=== PATIENT | male | born 1960 | race Caucasian/White ===

== ENCOUNTER 2017-01-01 10:52 | Day surgery (SDC) | payer OTHER ==
[~2017-01-01] VITALS: Ht 170.2 cm; Wt 78.2 kg
[~2017-01-01 10:52] MED LIST: ALLERCLEAR PO; CeFAZolin Inj 2 GM in IV Premix 1 EACH IV ONE
[2017-01-01] MEDS ORDERED: Dexamethasone 4 mg/mL Inj ONE (10:53)
[2017-01-01] MEDS ORDERED: Propofol 10,000 mCg/mL 20 mL Inj ONE (10:53)
[2017-01-01] MEDS ORDERED: Lidocaine PF 1% 30 mL Inj ONE (10:53)
[2017-01-01] MEDS: Lactated Ringer's 1,000 ML IV SCH ×2 (11:14→13:15)
[2017-01-01] MEDS ORDERED: PSEU30CA2 PO (11:18)
[2017-01-01 11:41] VITALS: BP 111/60; PULSE 83; RESP 16; O2SAT 97
[2017-01-01] MEDS ORDERED: CeFAZolin Inj 2 gm / 50mL D5W IV ONE (11:50)
--- NOTE | 2017-01-01 12:23 | PCM.HPANE ---
Patient Data Date of Service: January 01, 2017 Surgeon Admitting Provider: Attending Provider:Mandy Polanco DPM Primary Care Physician:Whitney Other Provider:Unruly Byrne Anesthesia Reason for Visit Right Foot Mortons Neuroma Ht/WT & BMI Height (Feet): 5 Height (Inches): 7 Weight (Kilograms): 78.2 Body Mass Index 27.00 Allergies Uncoded Allergies: NARCOTICS (Allergy, Unknown, SEVERE HYPOTENSION, 01/01/17) "PAINKILLERS" (Adverse Reaction, Severe, SEVERE HYPOTENSION, 12/30/16) Past Anesthesia History Anesthesia History: Denies:: Anesthesia Reactions, Malignant Hyperthermia Diabetes History Hx Diabetes?: No MRSA MRSA: No Medications Home Meds Incl Beta Payal: No Reported Medications Pseudoephedrine HCl (Nasal Decongestant)30 Mg [place]22 Mg PO 01/01/17 [Allerclear] No Conflict Check10 Mg PO DAILY 12/30/16 History History of ENT Problems?: Yes HEENT History: Positive for:: Sinus Problem (SEASONAL ALLERGIES S/P SINUS SURGERY (remotely) ) Denture Type: None Teeth Condition: Within Normal Limits Hx of Heart Problems?: No Cardiovascular History: Denies:: Heart Murmur Hypertension Hx of Respiratory Problem?: No Respiratory History: Denies:: Use of C-PAP Machine (SNORES) Hx Neurologic Problems?: No Hx of GI Problems?: Yes Other GI Pertinent History: S/P RT INGUINAL HERNIA RPR Hx of Problems?: No Male Hx: Denies:: Prostate Problems Scrotal Mass Testicular Surgery Skin History: Denies:: History Skin Disorders? 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 Denies:: Blood Transfusions Hx Diabetes: No Hx Alcohol Use: YesAlcoholic Drinks Per Day: 3-4/WEEKHx Substance Use: No Have You Smoked inLast 12 mo: No Stop/Bang S-Snoring: Do You Snore Loudly: Yes T-Tired: feel tired, fatigued: No O-Obsered: Observed not breath: No P-Blood Pressure: treated: No B- Body Mass Index > 35 kg/m2: No A- Age over 50: Yes N- Neck Large Circumference: No G- Gender Male: Yes CATHY Total Score: 3 Risk Assessment Category Category 1A: Patient has history of documented sleep apnea, and HAS NOT received any narcotic, sedative or anesthesia administration during this stay. Category 1B: Patient has history of documented sleep apnea, and HAS received any narcotic , sedative or anesthesia administration during this stay Category 2: Patient has SUSPECTED Obstructive Sleep Apnea, and HAS received any narcotic , sedative or anesthesia administration during this stay. Category 3: Patient has SUSPECTED Obstructive Sleep Apnea and HAS NOT received narcotic, sedative or anesthesia administration during this stay. Category 4: Outpatient in Procedural Areas with known sleep apnea or who screen positive for High Risk via the STOP/BANG questionnaire. Exam Exam Vital Signs Vital Signs Date Time Temp Pulse Resp B/P Pulse Ox O2 Delivery O2 Flow Rate FiO2 01/01/17 11:41 36.5 83 16 111/60 97 Room Air General Appearance: Alert, Oriented X3 HEENT/AIRWAY: MP 2 Lungs: Clear to Auscultation Heart: Regular Rate/Rhythm Meds/Labs/Diagnostics Admission Meds Current Medications Lactated Ringer's (Lr) 1,000 ml @ 120 mls/hr Q8H20M IV Last administered on t 11:14; Start 01/01/17 at 05:00; Stop 01/01/17 at 13:19 Plan Impression Patient chart reviewed, patient interviewed and anesthestic plan with risks, benefits, and alternatives discussed, and informed consent obtained. ASA Physical Status: ASA2 Mod Systemic Disease Anesthetic Plan: GA Bene/Risks/Altern/Consents: Yes HP Complete Prior to Induction: Yes Sonny Franklin MD January 01, 2017 12:23
[2017-01-01] MEDS ORDERED: Lactated Ringer's 500 ML IV PRN (13:14)
[2017-01-01] MEDS ORDERED: Lactated Ringer's 1,000 ML IV SCH (13:14)
[2017-01-01] MEDS ORDERED: Dexamethasone 4 mg/mL Inj IVPUSH PRN (13:15)
[2017-01-01] MEDS ORDERED: Labetalol 5 mg/mL 4 mL Inj IV PRN (13:15)
[2017-01-01] MEDS ORDERED: MetoCLOpramide 5 mg/mL 2 mL Inj IVPUSH PRN (13:15)
[2017-01-01] MEDS ORDERED: fentaNYL-PF 50 mCg/mL 2 mL Inj IVPUSH PRN (13:15)
[2017-01-01] MEDS ORDERED: EPHEDrine Sulfate 50 mg/mL Inj IVPUSH PRN (13:15)
[2017-01-01] MEDS ORDERED: Phenylephrine 10,000 mCg/mL Inj IVPUSH PRN (13:15)
[2017-01-01] MEDS ORDERED: Atropine 0.4 mg/mL Inj IVPUSH PRN (13:15)
[2017-01-01] MEDS ORDERED: Ondansetron 2 mg/mL 2 mL Inj IVPUSH PRN (13:15)
[2017-01-01] MEDS ORDERED: Bupivacaine-MPF 0.5% W/EPI 30 mL Inj INFILTRATE ONE (13:39)
[2017-01-01] MEDS ORDERED: Dexamethasone 4 mg/mL Inj IM ONE (14:08)
[2017-01-01 14:25] VITALS: BP 116/77; PULSE 59; RESP 16; O2SAT 99
[2017-01-01 14:40] VITALS: BP 117/75; PULSE 59; RESP 16; O2SAT 99
--- NOTE | 2017-01-01 15:27 | PCM.ANEP1 ---
Post Anesthesia Phase 1 PACU Phase 1 Assessment Date of Service: January 01, 2017 Vital Signs Vital Signs Date Time Temp Pulse Resp B/P Pulse Ox O2 Delivery O2 Flow Rate FiO2 01/01/17 14:40 36.6 59 16 117/75 99 Room Air 01/01/17 14:25 36.5 59 16 116/77 99 Room Air 01/01/17 11:41 36.5 83 16 111/60 97 Room Air Anesthetic Administered: GA Level of Alertness: Awake, talking PORRAS's with Equal Strength: Yes Pain: No Nausea or Vomiting: No Lungs: Clear to Auscultation Sonny Franklin MD January 01, 2017 15:27
--- NOTE | 2017-01-05 07:29 | PATH ---
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 ICD10 CODE G57.62 GROSS DESCRIPTION: The specimen is received in one formalin filled container labeled with the patient's name, sublabeled "neuroma of right foot interspace" and consists of 3 pink-martin portions of tissue which aggregate to 1.0 x 0.8 x 0.6 CM. The specimen is inked blue. The specimen is sectioned into multiple pieces and entirely submitted in one cassette. 01/02/2017 [facility] MICRO DESCRIPTION: See diagnosis. ICD-9 CODES: CPT CODES: 1: 72193 Electronically Signed Out Ibrahima Connolly MD [facility] [address], [place] [address] Technical component performed at [facility], [facility] [address], [place], [address]
--- NOTE | 2017-01-20 12:51 | OP ---
[address] [address] OPERATIVE REPORT PATIENT: NIURKA ACOSTA : 1960 MR#: [id number] ADMIT: 01/01/2017 JOB ID: [id number] DATE OF SURGERY: 01/01/2017 SURGEON: Mandy Polanco DPM ONCOLOGY CONSULTANT: None. PREOPERATIVE DIAGNOSIS(ES): Painful neuroma, third interspace, right foot. POSTOPERATIVE DIAGNOSIS(ES): Painful neuroma, third interspace, right foot. PROCEDURE: Excision of painful neuroma, third interspace, right foot. ANESTHESIA: Local with IV sedation. TOURNIQUET: None. DESCRIPTION OF PROCEDURE: The patient was brought into the operating room and placed in supine position on the operating room table. After IV sedation was administered, 3 cc of a 1:1 mixture of lidocaine 1% with epinephrine and Marcaine 0.5% plain was administered around the third interspace of the right foot. The foot was then prepped and draped in usual sterile technique. Anesthesia was tested for and found to be adequate. A 2.5 cm incision was made dorsally at the third interspace. This incision was deepened down to subcutaneous tissue using sharp and dull dissection and Bovieing any bleeders as needed for hemostasis using a 15 blade. Using iris scissors, the subcutaneous tissue was dissected down to the intermetatarsal ligament, and this was incised. Plantar pressure was then applied to the third interspace. It was noted that the intermetatarsal nerve was enlarged. This was dissected distally into the third and fourth toes and transected. The nerve was then dissected proximally and followed until it could no longer be seen underneath the metatarsal. The nerve was then incised and the segment of tissue was sent for pathology for microscopic and gross exam. They area was then copiously flushed with normal saline. The subcutaneous tissue was reapproximated using 3-0 Vicryl, and the skin was closed using 4-0 nylon. The dressing consisted of bacitracin, Way silk, saline moistened 4 x 4 gauze, dry 4 x 4 gauze, Kerlix, and an Ajay wrap. The patient tolerated the procedure and anesthesia well. He left the operating room with vital signs stable and vascular status intact to all toes of the right foot. Once patient is stable, he is to be discharged home.
== END 2017-01-01 23:59 | disposition home or self-care (01) ==
LOC: SAS 10:52
PROVIDERS: ATTEND Podiatrist
DX: G57.81 Other specified mononeuropathies of right lower limb (principal); M79.671 Pain in right foot
CPT/HCPCS: 28080; 88304; J0690; J1100; J2250; J7120